=== PATIENT | female | born 2000 | race Caucasian/White ===

== ENCOUNTER 2019-01-01 15:59 | Emergency (ER) | payer SELFPAY ==
[2019-01-01 16:48] LABS: ABS Basophils 0.1 10^3/ul (0-0.2); ABS Eosinophils 0.2 10^3/ul (0-0.6); ABS Lymphocytes 2.2 10^3/ul (1.0-4.8); ABS Monocytes 0.4 10^3/ul (0-0.8); ABS Neutrophils 3.1 10^3/ul (1.5-7.7); Eosinophil % 2.9 %; Hematocrit 38 % (35-47); Hemoglobin 13.2 g/dL (12.0-16.0); Lymphocyte % 36.9 %; Mean Corpuscular HGB Conc 35 g/dL (31-36); Mean Corpuscular Hemoglobin 28 pg (27-31); Mean Corpuscular Volume 81 fL (80-97); Mean Platelet Volume 8.9 fL (7.4-10.4); Platelet Count 289 10^3/uL (150-450); Red Blood Count 4.73 10^6 /uL (3.70-4.87); Red Cell Distribution Width 14 % (10-15); White Blood Count 5.9 10^3/uL (3.5-10.8)
[2019-01-01 16:53] LABS: INR 1.1 (0.82-1.09)
[2019-01-01 17:17] LABS: HCG Pregnancy < 0.60 mIU/mL
[2019-01-01 17:24] LABS: ALT 14 U/L (7-52); AST 17 U/L (13-39); Albumin 4.6 g/dL (3.2-5.2); Albumin/Globulin Ratio 1.6 (1-3); Alkaline Phosphatase 84 U/L (34-104); Anion Gap 7 mmol/L (2-11); BUN/Creatinine Ratio 6.8 (8-20); Blood Urea Nitrogen 5 mg/dL (6-24); C Reactive Protein 2.36 mg/L (<8.01); CO2 Carbon Dioxide 26 mmol/L (22-32); Calcium 9.3 mg/dL (8.6-10.3); Chloride 105 mmol/L (101-111); EGFR African American 122.3 (>60); EGFR Non-African American 101.1 (>60); Globulin 2.8 g/dL (2-4); Glucose 96 mg/dL (70-100); Potassium 3.7 mmol/L (3.5-5.0); Sodium 138 mmol/L (135-145); Total Protein 7.4 g/dL (6.4-8.9)
--- NOTE | 2019-01-01 19:05 | ED ---
HPI Chest Pain - HPI Summary HPI Summary: This patient is a 18 year old female presenting to [facility] with a chief complaint of chest pain, SOB, and dizziness. The patient states she has had these symptoms for several days and was concerned about potentially having an ME She states she went to her [facility] [place] which told her to come here. She states the location of the pain is midsternal. She also reports umbilical pain, generalized weakness, headache and nausea. She describes her pain as an intermittend pain and rates it 5/10 in severity. She states her grandfather had an ME in his 30s. - History of Current Complaint Chief Complaint: EDUpperRespComplaint Time Seen by Provider: 01/01/19 18:53 Hx Obtained From: Patient Onset/Duration: Started Days Ago Timing: Intermittent Current Severity: Moderate Pain Intensity: 5 Pain Scale Used: 0-10 Numeric Chest Pain Location: Mid Sternal Associated Signs and Symptoms: Positive: Nausea - Allergy/Home Medications Allergies/Adverse Reactions: Allergies Allergy/AdvReac Type Severity Reaction Status Date / Time No Known Allergies Allergy Verified 01/01/19 16:07 Home Medications: Home Medications Testosterone Cypionate (NF) 200 mg IM WEEKLY 01/01/19 [History Confirmed ] PMH/Surg Hx/FS Hx/Imm Hx Endocrine/Hematology History: Denies: Hx Diabetes Cardiovascular History: Denies: Hx Coronary Artery Disease Infectious Disease History: No Infectious Disease History: Denies: Traveled Outside the [place] in Last 30 Days - Family History Known Family History: Positive: Cardiac Disease - Social History Occupation: Student Hx Substance Use: No Hx Tobacco Use: No Review of Systems Positive: Chest Pain Positive: Shortness Of Breath Positive: Abdominal Pain, Nausea Neurological: Other - Dizziness Positive: Headache, Weakness All Other Systems Reviewed And Are Negative: Yes Physical Exam - Summary Physical Exam Summary: VITAL SIGNS: Reviewed. GENERAL: Patient is a well-developed and nourished FEMALE who is lying comfortable in the stretcher. Patient is not in any acute respiratory distress. HEAD AND FACE: No signs of trauma. No ecchymosis, hematomas or skull depressions. No sinus tenderness. EYES: PERRLA, EOMI x 2, No injected conjunctiva, no nystagmus. EARS: Hearing grossly intact. Ear canals and tympanic membranes are within normal limits. MOUTH: Oropharynx within normal limits. NECK: Supple, trachea is midline, no adenopathy, no JVD, no carotid bruit, no c- spine tenderness, neck with full ROM. CHEST: Symmetric, no tenderness at palpation. LUNGS: Clear to auscultation bilaterally. No wheezing or crackles. CVS: Regular rate and rhythm, S1 and S2 present, no murmurs or gallops appreciated. ABDOMEN: Soft, non-tender. No signs of distention. No rebound, no guarding, and no masses palpated. Bowel sounds are normal. EXTREMITIES: FROM in all major joints, no edema, no cyanosis or clubbing. NEURO: Alert and oriented x 3. No acute neurological deficits. Speech is normal and follows commands. SKIN: Dry and warm. Triage Information Reviewed: Yes Vital Signs On Initial Exam: Initial Vitals Temp Pulse Resp BP Pulse Ox 98.3 F 74 16 128/89 100 01/01/19 16:03 01/01/19 16:03 01/01/19 16:03 01/01/19 16:03 01/01/19 16:03 Vital Signs Reviewed: Yes Diagnostics - Vital Signs Vital Signs Temp Pulse Resp BP Pulse Ox 01/01/19 17:40 99.4 F 73 17 109/64 99 01/01/19 16:03 98.3 F 74 16 128/89 100 - Laboratory Lab Results: Lab Results 01/01/19 01/01/19 01/01/19 Range/Units 16:33 16:33 16:33 WBC 5.9 (3.5-10.8) 10^3/uL RBC 4.73 (3.70-4.87) 10^6 /uL Hgb 13.2 (12.0-16.0) g/dL Hct 38 (35-47) % MCV 81 (80-97) fL MCH 28 (27-31) pg MCHC 35 (31-36) g/dL RDW 14 (10-15) % Plt Count 289 (150-450) 10^3/uL MPV 8.9 (7.4-10.4) fL Neut % (Auto) 52.4 % Lymph % (Auto) 36.9 % [place] % (Auto) 6.5 % Eos % (Auto) 2.9 % Baso % (Auto) 1.3 % Absolute Neuts (auto) 3.1 (1.5-7.7) 10^3/ul Absolute Lymphs (auto) 2.2 (1.0-4.8) 10^3/ul Absolute Monos (auto) 0.4 (0-0.8) 10^3/ul Absolute Eos (auto) 0.2 (0-0.6) 10^3/ul Absolute Basos (auto) 0.1 (0-0.2) 10^3/ul Absolute Nucleated RBC 0.0 10^3/ul Nucleated RBC % 0.0 INR (Anticoag Therapy) 1.10 H (0.82-1.09) Sodium 138 (135-145) mmol/L Potassium 3.7 (3.5-5.0) mmol/L Chloride 105 (101-111) mmol/L Carbon Dioxide 26 (22-32) mmol/L Anion Gap 7 (2-11) mmol/L BUN 5 L (6-24) mg/dL Creatinine 0.74 (0.51-0.95) mg/dL Est GFR ( Amer) 122.3 (>60) Est GFR (Non-Af Amer) 101.1 (>60) BUN/Creatinine Ratio 6.8 L (8-20) Glucose 96 (70-100) mg/dL Calcium 9.3 (8.6-10.3) mg/dL Total Bilirubin 0.40 (0.2-1.0) mg/dL AST 17 (13-39) U/L ALT 14 (7-52) U/L Alkaline Phosphatase 84 (34-104) U/L Troponin I 0.00 (<0.04) ng/mL C-Reactive Protein 2.36 (<8.01) mg/L Total Protein 7.4 (6.4-8.9) g/dL Albumin 4.6 (3.2-5.2) g/dL Globulin 2.8 (2-4) g/dL Albumin/Globulin Ratio 1.6 (1-3) Lipase 20 (11.0-82.0) U/L Beta HCG, Quant < 0.60 mIU/mL Result Diagrams: 01/01/19 16:33 01/01/19 16:33 Lab Statement: Any lab studies that have been ordered have been reviewed, and results considered in the medical decision making process. - EKG 1600 Cardiac Rate: NL - 64 BPM EKG Rhythm: Sinus Rhythm Summary of EKG Findings: Normal axis. No ST elevations. ED Physician has reviewed and interpreted this EKG. Chest Pain Course/Dx - Course Assessment/Plan: This patient is a 18 year old female presenting to [facility] with a chief complaint of chest pain, SOB, and dizziness. The patient states she has had these symptoms for several days and was concerned about potentially having an ME She states she went to her [facility] which told her to come here. She states the location of the pain is midsternal. She also reports umbilical pain, generalized weakness, headache and nausea. She describes her pain as an intermittent, pain and rates it 5/10 in severity. She states her grandfather had an ME in his 30s. EKG shows a normal sinus rhythm and [address] elevations. No delta waves. Blood work without any significant abnormality. The troponin 0.00. Patient is asymptomatic. Heart score is 0. Patient reports that all symptoms have resolved. Because the patient has no significant comorbidities and no family history of cardiovascular disease at his age the patient will be discharged home with follow up of PMD. I discussed all the findings and test results with the patient. Patient was instructed to return to the emergency room immediately if any of the symptoms return or worsens. Patient understands and agrees. Plan of care was discussed with the patient and patient understands and agrees. All questions were answered at patient satisfaction. There were no further complaints or concerns. PE before discharge: CVS: S1 and S2 present. No murmurs appreciated. Abdominal exam before discharge: Soft, non-tender. No signs of distention. No rebound no guarding, and no masses palpated. Bowel sounds are normal. Patient is alert and oriented x 3. Patient is hemodynamically stable. - Diagnoses Provider Diagnoses: Atypical chest pain Discharge ED - Sign-Out/Discharge Documenting (check all that apply): Patient Departure - Discharge Patient Received Moderate/Deep Sedation with Procedure: No - Discharge Plan Condition: Stable Disposition: HOME Patient Education Materials: Chest Pain (ED) Referrals: No Primary Care Phys,NOPCP [Primary Care Provider] - Additional Instructions: Return to ED with new or worsening symptoms. - Billing Disposition and Condition Condition: STABLE Disposition: Home - Attestation Statements Document Initiated by Scribe: Yes Documenting Scribe: Raheem Valdez Provider For Whom Scribe is Documenting (Include Credential): Lavon Mcnair, MD Scribe Attestation: I, Raheem Valdez, scribed for Lavon Mcnair MD on 01/01/19 at 2201. Scribe Documentation Reviewed: Yes Provider Attestation: The documentation as recorded by the scribe, Raheem Valdez accurately reflects the service I personally performed and the decisions made by me, Lavon Mcnair MD Status of Scribe Document: Viewed
[2019-01-01 19:46] VITALS: BP 104/66
== END 2019-01-01 19:46 | disposition home or self-care (01) ==
LOC: EDSEX → ED 15:59
DX: R07.89 Other chest pain (principal); R11.0 Nausea; Z79.899 Other long term (current) drug therapy; R10.9 Unspecified abdominal pain; R53.1 Weakness
CPT/HCPCS: 36415; 80053; 83690; 84484; 84702; 85025; 85610; 86140; 93005; 99282